=== PATIENT | female | born 1950 | race Caucasian/White ===

== ENCOUNTER → 2017-03-09 | Outpatient (CLI) | payer MEDICARE ==
--- NOTE | 2017-03-10 11:29 | MM ---
Reason for exam: screening (asymptomatic). Last mammogram was performed 1 year ago. History: Patient is postmenopausal. Family history of breast cancer in paternal aunt at age 70 and breast cancer in paternal aunt at age 40. Physical Findings: A clinical breast exam by your physician is recommended on an annual basis and results should be correlated with mammographic findings. MG 3D Screening Mammo W/Cad Bilateral CC and MLO view(s) were taken. Prior study comparison: February 26, 2016, bilateral MG diagnostic mammo w CAD CAROLINE. April 09, 2015, bilateral MG screening mammo w CAD. The breast tissue is almost entirely fat. There is no discrete abnormality. No significant changes when compared with prior studies. ASSESSMENT: Negative, BI-RAD 1 RECOMMENDATION: Routine screening mammogram of both breasts in 1 year.
== END | disposition home or self-care (01) ==
LOC: RADMAMWWP 07:54
PROVIDERS: ATTEND Family Medicine
DX: Z12.31 Encounter for screening mammogram for malignant neoplasm of breast (principal); Z80.3 Family history of malignant neoplasm of breast
CPT/HCPCS: 77063; G0202

== ENCOUNTER → 2018-03-29 | Outpatient (CLI) | payer MEDICARE ==
--- NOTE | 2018-03-30 14:33 | MM ---
Reason for exam: screening (asymptomatic). Last mammogram was performed 1 year and 1 month ago. History: Patient is postmenopausal. Family history of breast cancer in paternal aunt at age 70 and breast cancer in paternal aunt at age 40. Physical Findings: A clinical breast exam by your physician is recommended on an annual basis and results should be correlated with mammographic findings. MG 3D Screening Mammo W/Cad Bilateral CC and MLO view(s) were taken. Prior study comparison: March 09, 2017, bilateral MG 3d screening mammo w/cad. February 26, 2016, bilateral MG diagnostic mammo w CAD CAROLINE. There are scattered fibroglandular densities. No suspicious abnormality. No significant changes when compared with prior studies. ASSESSMENT: Negative, BI-RAD 1 RECOMMENDATION: Routine screening mammogram of both breasts in 1 year.
== END | disposition home or self-care (01) ==
LOC: RADMAMWWP 07:44
PROVIDERS: ATTEND Family Medicine
DX: Z12.31 Encounter for screening mammogram for malignant neoplasm of breast (principal); Z80.3 Family history of malignant neoplasm of breast
CPT/HCPCS: 77063; 77067

== ENCOUNTER → 2020-04-14 | Outpatient (CLI) | payer MEDICARE ==
--- NOTE | 2020-04-14 09:46 | XR ---
EXAMINATION TYPE: XR chest 2V DATE OF EXAM: 04/14/2020 COMPARISON: NONE TECHNIQUE: PA and lateral views submitted. HISTORY: Pain FINDINGS: The lungs are clear and there is no pneumothorax, pleural effusion, or focal pneumonia. Hypertrophi c change of the spine. Hyperinflation suggests COPD. IMPRESSION: 1. No acute process.
== END | disposition home or self-care (01) ==
LOC: RADXRMAIN 09:03
PROVIDERS: ATTEND Family Medicine
DX: R05 Cough (principal); C43.9 Malignant melanoma of skin, unspecified
CPT/HCPCS: 71046

== ENCOUNTER → 2020-06-09 | Outpatient (CLI) | payer MEDICARE ==
--- NOTE | 2020-06-10 10:39 | MM ---
Reason for exam: screening (asymptomatic). Last mammogram was performed 1 year and 2 months ago. History: Patient is postmenopausal. Family history of breast cancer in paternal aunt at age 70 and breast cancer in paternal aunt at age 40. Physical Findings: A clinical breast exam by your physician is recommended on an annual basis and results should be correlated with mammographic findings. MG 3D Screening Mammo W/Cad Bilateral CC and MLO view(s) were taken. Prior study comparison: April 09, 2019, bilateral MG 3d screening mammo w/cad. March 29, 2018, bilateral MG 3d screening mammo w/cad. There are scattered fibroglandular densities. There is no discrete abnormality. ASSESSMENT: Negative, BI-RAD 1 RECOMMENDATION: Routine screening mammogram of both breasts in 1 year.
== END | disposition home or self-care (01) ==
LOC: RADMAMWWP 10:49
PROVIDERS: ATTEND Family Medicine
DX: Z12.31 Encounter for screening mammogram for malignant neoplasm of breast (principal)
CPT/HCPCS: 77063; 77067

== ENCOUNTER → 2021-05-20 | Outpatient (CLI) | payer MEDICARE | END | disposition home or self-care (01) | LOC: LABWHC1 12:59 | PROVIDERS: ATTEND Nurse Practitioner Women's Health | DX: R07.89 Other chest pain (principal) | CPT/HCPCS: 36415; 93005 ==

== ENCOUNTER → 2021-06-11 | Outpatient (CLI) | payer MEDICARE ==
--- NOTE | 2021-06-12 12:12 | MM ---
Reason for exam: screening (asymptomatic). Last mammogram was performed 1 year ago. History: Patient is postmenopausal and has history of other cancer at age 70. Family history of breast cancer in paternal aunt at age 70 and breast cancer in paternal aunt at age 40. Physical Findings: A clinical breast exam by your physician is recommended on an annual basis and results should be correlated with mammographic findings. MG 3D Screening Mammo W/Cad Bilateral CC and MLO view(s) were taken. Prior study comparison: June 09, 2020, bilateral MG 3d screening mammo w/cad. April 09, 2019, bilateral MG 3d screening mammo w/cad. No significant changes when compared with prior studies. ASSESSMENT: Benign, BI-RAD 2 RECOMMENDATION: Routine screening mammogram of both breasts in 1 year.
== END | disposition home or self-care (01) ==
LOC: RADMAMWWP 13:11
PROVIDERS: ATTEND Family Medicine
DX: Z12.31 Encounter for screening mammogram for malignant neoplasm of breast (principal); Z80.3 Family history of malignant neoplasm of breast
CPT/HCPCS: 77063; 77067

== ENCOUNTER → 2021-12-24 | Outpatient (CLI) | payer MEDICARE ==
[2021-12-24 14:40] LABS: African American GFR (CKD) >90 (>60 ml/min/1.73 sqM); Blood Urea Nitrogen 15 mg/dL (7-17); Non-African American GFR(CKD) >90 (>60 ml/min/1.73 sqM)
--- NOTE | 2021-12-24 15:39 | CT ---
EXAMINATION TYPE: CT brain wo/w con DATE OF EXAM: 12/24/2021 COMPARISON: None HISTORY: Facial droop. CT DLP: 2294mGycm CONTRAST: CT scan of the head is performed without and with IV Contrast, patient injected with 100ml mL of Isov ue 300. Unenhanced followed by contrast enhanced CT of the brain is submitted for evaluation. The ventricles are midline. There is no evidence for intracranial hemorrhage or extra-axial collection. No mass e ffects are identified. Visualized bony calvarium is intact. Contrast is administered and no enhanci ng lesions are detected. No pathologic enhancement is identified. If symptoms persist consider MRI. IMPRESSION: No distinct abnormality appreciated.
== END | disposition home or self-care (01) ==
LOC: RADCTMAIN 13:47
PROVIDERS: ATTEND Family Medicine
DX: R29.810 Facial weakness (principal)
CPT/HCPCS: 82565; 84520; 70470; 36415; Q9967

== ENCOUNTER → 2022-06-16 | Outpatient (CLI) | payer MEDICARE ==
--- NOTE | 2022-06-17 13:50 | MM ---
Reason for Exam: Screening (asymptomatic). Last screening mammogram was performed 12 month(s) ago. Patient History: Menarche at age 11. First Full-Term at age 22. Postmenopausal. Other cancer, age 70. Paternal aunt had breast cancer, age 70. Paternal aunt had breast cancer, age 40. Risk Values: Jennifer 5 year model risk: 1.7%. NCI Lifetime model risk: 4.7%. Prior Study Comparison: 04/09/2019 Bilateral Screening Mammogram, [facility]. 06/09/2020 Bilateral Screening Mammogram, [facility]. 06/11/2021 Bilateral Screening Mammogram, [facility]. Tissue Density: There are scattered fibroglandular densities. Findings: Analyzed By CAD. There are benign appearing vascular calcifications bilaterally in the upper outer quadrant. No discrete abnormality. Benign left axilla lymph nodes. Overall Assessment: Benign, BI-RAD 2 Management: Screening Mammogram of both breasts in 1 year. A clinical breast exam by your physician is recommended on an annual basis and results should be correlated with mammographic findings. Electronically signed and approved by: Quang Rawls M.D.
--- NOTE | 2022-06-17 19:15 | BD ---
EXAMINATION TYPE: Axial Bone Density DATE OF EXAM: 06/16/2022 CLINICAL HISTORY: 72 year old Female. ICD-10 CODE: Z13.820 OSTEOPOROSIS Height: 64 Weight: 185.4 FRAX RISK QUESTIONS: Alcohol (3 or more units per day): no Family History (Parent hip fracture): no Glucocorticoids (More than 3mos): no (Ex: prednisone, prednisolone, methylprednisolone, dexamethasone, and hydrocortisone). History of Fracture in Adulthood: no Secondary Osteoporosis: 1. Type 1 Diabetes: no 2. Hyperthyroidism: no 3. Menopause before 45: no 4. Malnutrition: no 5. Chronic liver disease: no Rheumatoid Arthritis: no Current Tobacco Use: no RISK FACTORS HISTORY OF: Surgery to Spine/Hip(right/left)/Wrist (right/left): no Family History of Osteoporosis: no Active: yes Diet low in dairy products/other sources of calcium: no Postmenopausal woman: yes Lost more than 2 inches in height since high school: no MEDICATIONS: Additional History: EXAM MEASUREMENTS: Bone mineral densitometry was performed using the [employer] System. Bone mineral density as measured about the Lumbar spine is: ----- L1-L4(G/cm2): 1.064 T Score Values are as follows: ----- L1: -1.3 ----- L2: -1.2 ----- L3: -0.4 ----- L4: -1.3 ----- L1-L4: -1.0 Bone mineral density has: decreased -16.4 % since study of: 04.02.2002 Bone mineral density about the R hip (g/cm2): 0.920 Bone mineral density about the L hip (g/cm2): 0.877 T Score values are as follows: -----R Neck: -0.8 -----L Neck: -1.2 -----R Total: -0.2 -----L Total: -0.4 Bone mineral density has: decreased -9.5 % since study of: 04.02.2002 FRAX%s: The graph provided illustrates a 9.0% chance for a major osteoporotic fx and a 1.1% chance fo r the hips probability for fx in 10 years time. IMPRESSION: Osteopenia (T Score between -2.5 and -1). There is slightly increased risk of fracture and the patient may be considered for treatment. Re-Screen 2-5 years. NOTE: T-SCORE=SD OF THE YOUNG ADULT MEAN.
== END | disposition home or self-care (01) ==
LOC: RADMAMWWP 07:51
PROVIDERS: ATTEND Family Medicine
DX: Z12.31 Encounter for screening mammogram for malignant neoplasm of breast (principal); Z13.820 Encounter for screening for osteoporosis; M85.80 Other specified disorders of bone density and structure, unspecified site; Z78.0 Asymptomatic menopausal state
CPT/HCPCS: 77063; 77067; 77080

== ENCOUNTER → 2023-05-16 | Outpatient (CLI) | payer MEDICARE ==
--- NOTE | 2023-05-16 17:15 | US ---
EXAMINATION TYPE: US venous doppler duplex LE LT DATE OF EXAM: 05/16/2023 5:04 PM COMPARISON: NONE CLINICAL INDICATION: Female, 73 years old with history of M79.605 Pain in left leg; pain SIDE PERFORMED: Left TECHNIQUE: The lower extremity deep venous system is examined utilizing real time linear array sonog magui with graded compression, doppler sonography and color-flow sonography. VESSELS IMAGED: Common Femoral Vein Deep Femoral Vein Greater Saphenous Vein * Femoral Vein Popliteal Vein Small Saphenous Vein * Proximal Calf Veins (* superficial vessels) Left Leg: Negative for DVT IMPRESSION: Grayscale, color doppler, spectral doppler imaging performed of the deep veins of the lo wer extremities. There is normal flow, compressibility, vascular waveforms.
== END | disposition home or self-care (01) ==
LOC: RADUSWWP 16:42
PROVIDERS: ATTEND Family Medicine
DX: M79.605 Pain in left leg (principal); M79.652 Pain in left thigh; Z74.09 Other reduced mobility

== ENCOUNTER → 2023-09-21 | Outpatient (CLI) | payer MEDICARE ==
--- NOTE | 2023-09-22 09:50 | MM ---
Reason for Exam: Screening (asymptomatic). Last mammogram was performed 1 year(s) and 3 month(s) ago. Patient History: Menarche at age 11. First Full-Term at age 22. Postmenopausal. Patient has history of breast feeding. Other cancer, age 70. Paternal aunt had breast cancer, age 70. Paternal aunt had breast cancer, age 40. Risk Values: Jennifer 5 year model risk: 1.7%. NCI Lifetime model risk: 4.5%. Prior Study Comparison: 03/09/2017 Bilateral Screening Mammogram, [facility]. 03/29/2018 Bilateral Screening Mammogram, [facility]. 04/09/2019 Bilateral Screening Mammogram, [facility]. 06/09/2020 Bilateral Screening Mammogram, [facility]. 06/11/2021 Bilateral Screening Mammogram, [facility]. 06/16/2022 Bilateral MG 3D screening mammo w/cad, [facility]. Tissue Density: The breast tissue is almost entirely fat. Findings: Analyzed By CAD. There is no suspicious group of microcalcifications or new suspicious mass. Overall Assessment: Negative, BI-RAD 1 Management: Screening Mammogram of both breasts in [address] [facility] will attempt to contact patient to return for supplemental views and ultrasound if indicated. Patient should continue monthly self-breast exams. A clinical breast exam by your physician is recommended on an annual basis. This exam should not preclude additional follow-up of suspicious palpable abnormalities. Note on Jennifer scores and lifetime risk: 1. A Jennifer score greater than 3% is considered moderate risk. If this is the case, consider specialist referral to assess eligibility for a risk reducing agent. 2. If overall lifetime risk for the development of breast cancer is 20% or higher, the patient may qualify for future screening with alternating mammogram and breast MRI. Electronically signed and approved by: Michael Saavedra DO
== END | disposition home or self-care (01) ==
LOC: RADMAMWWP 07:34
PROVIDERS: ATTEND Family Medicine
DX: Z12.31 Encounter for screening mammogram for malignant neoplasm of breast (principal); Z78.0 Asymptomatic menopausal state; Z80.3 Family history of malignant neoplasm of breast
CPT/HCPCS: 77063; 77067

== ENCOUNTER → 2024-07-31 | Outpatient (CLI) | payer MEDICARE ==
--- NOTE | 2024-08-01 13:28 | BD ---
EXAMINATION TYPE: Axial Bone Density DATE OF EXAM: 07/31/2024 CLINICAL HISTORY: 74 years old Female. ICD-10 CODE: Z78.0 ASYMPTOMATIC MENOPAUSAL STATE Height: 64 Weight: 195.3 FRAX RISK QUESTIONS: Alcohol (3 or more units per day): no Family History (Parent hip fracture): no Glucocorticoids (More than 3mos): no (Ex: prednisone, prednisolone, methylprednisolone, dexamethasone, and hydrocortisone). History of Fracture in Adulthood: no Secondary Osteoporosis: 1. Type 1 Diabetes: no 2. Hyperthyroidism: no 3. Menopause before 45: no 4. Malnutrition: no 5. Chronic liver disease: no Rheumatoid Arthritis: no Current Tobacco Use: no RISK FACTORS HISTORY OF: Surgery to Spine/Hip(right/left)/Wrist (right/left): no EXAM MEASUREMENTS: Bone mineral densitometry was performed using the [employer] System. Bone mineral density as measured about the Lumbar spine is: ----- L1-L4(G/cm2): 1.134 T Score Values are as follows: ----- L1: -1.1 ----- L2: -0.1 ----- L3: 0.2 ----- L4: -0.8 ----- L1-L4: -0.4 Z Score Values are as follows: ----- L1: -0.2 ----- L2: 0.8 ----- L3: 1.2 ----- L4: 0.2 ----- L1-L4: 0.6 Bone mineral density has: increased 6.6 % since study of: 06.16.2022 Bone mineral density about the R hip (g/cm2): 0.975 Bone mineral density about the L hip (g/cm2): 0.967 T Score values are as follows: -----R Neck: -0.8 -----L Neck: -1.0 -----R Total: -0.3 -----L Total: -0.3 Z Score values are as follows: -----R Neck: 0.5 -----L Neck: 0.3 -----R Total: 0.8 -----L Total: 0.8 Bone mineral density has: decreased -0.3 % since study of: 06.16.2021 FRAX%s: The graph provided illustrates a 8.9 % chance for a major osteoporotic fx and a 1.2% chance f or the hips probability for fx in 10 years time. IMPRESSION: Normal (Values between +1 and -1 indicate normal bone mass). Consider repeating this study in 5 year s or sooner if there is some new clinical indication. NOTE: T-SCORE=SD OF THE YOUNG ADULT MEAN. [facility], , 08/01/2024 1:26 PM
== END | disposition home or self-care (01) ==
LOC: RADBDWWP 15:46
PROVIDERS: ATTEND Family Medicine
CPT/HCPCS: 77080

== ENCOUNTER → 2024-12-31 | Outpatient (CLI) | payer MEDICARE ==
--- NOTE | 2024-12-31 08:04 | MM ---
Reason for Exam: Screening (asymptomatic). Last mammogram was performed 1 year(s) and 3 month(s) ago. Patient History: Menarche at age 11. First Full-Term at age 22. Postmenopausal. Patient has history of breast feeding. Other cancer, age 70. Paternal aunt had breast cancer, age 70. Paternal aunt had breast cancer, age 40. Risk Values: Jennifer 5 year model risk: 1.7%. NCI Lifetime model risk: 4.3%. Prior Study Comparison: 06/11/2021 Bilateral Screening Mammogram, [facility]. 06/16/2022 Bilateral MG 3D screening mammo w/cad, [facility]. 09/21/2023 Bilateral MG 3D screening mammo w/cad, [facility]. Tissue Density: There are scattered areas of fibroglandular density. Findings: Analyzed By CAD. There is no suspicious group of microcalcifications or new suspicious mass in either breast. Benign-appearing calcified patient. Overall Assessment: Benign, BI-RAD 2 Management: Screening Mammogram of both breasts in 1 year. . Patient should continue monthly self-breast exams. A clinical breast exam by your physician is recommended on an annual basis. This exam should not preclude additional follow-up of suspicious palpable abnormalities. Note on Jennifer scores and lifetime risk: 1. A Jennifer score greater than 3% is considered moderate risk. If this is the case, consider specialist referral to assess eligibility for a risk reducing agent. 2. If overall lifetime risk for the development of breast cancer is 20% or higher, the patient may qualify for future screening with alternating mammogram and breast MRI. [facility], , 12/31/2024 8:02 AM. Electronically signed and approved by: Darrell Kraft M.D. Radiologis
== END | disposition home or self-care (01) ==
LOC: RADMAMWWP 07:38
PROVIDERS: ATTEND Family Medicine
DX: Z12.31 Encounter for screening mammogram for malignant neoplasm of breast (principal); R92.323 Mammographic fibroglandular density, bilateral breasts; Z78.0 Asymptomatic menopausal state; Z80.3 Family history of malignant neoplasm of breast
CPT/HCPCS: 77063; 77067

== ENCOUNTER → 2025-03-26 | Outpatient (CLI) | payer MEDICARE ==
[2025-03-26 13:16] VITALS: BP 134/79; PULSE 77; RESP 18; TEMP 98.4
--- NOTE | 2025-03-26 13:44 | P.SLEEP ---
History of Present Illness H&P Date: 03/26/25 This is a very pleasant 75-year-old female patient is presenting to the sleep center due to concerns of sleep apnea. The patient has been waking up tired and fatigued and she is feeling sleepy during the day. She is carrying an Charlotte score of 9. She has history of snoring. She also has history of grinding of the teeth and TMJ and the patient wears a bite guard. No reported insomnia. Denies waking up choking or gasping for air. No sleepwalking or sleep talking. No restlessness in the lower extremities. For now, the patient goes to bed at 10 PM and she wakes up 7 AM in the morning. She is retired and she maintains the same sleep schedule on the weekends. The patient has gained around 10 pounds over the past 5 years. Does not take any naps during the day. No history of any motor vehicle accidents because of feeling drowsy or sleepy. No substance abuse. No alcoholism. No smoking. She is a nose breather. She wakes up with a dry mouth and she prefers to sleep on her side. She is very much aware of sleep apnea as a disease process as the patient's has obstructive sleep apnea and he wears a CPAP machine. The patient is interested in pursuing further investigation. Review of Systems Constitutional: Reports daytime sleepiness, Reports fatigue Eyes: denies as per HPI, denies blurred vision, denies bulging eye, denies decreased vision, denies diplopia, denies discharge, denies dry eye, denies i rritation, denies itching, denies pain, denies photophobia, denies loss of peripheral vision, denies loss of vision, denies tunnel vision/blind spots Ears: deny: decreased hearing, ear discharge, earache, tinnitus Ears, nose, mouth and throat: Reports as per HPI Breasts: absent: as per HPI, change in shape, gynecomastia, masses, nipple discharge, pain, skin changes, swelling Cardiovascular: Reports as per HPI Respiratory: Reports snoring Gastrointestinal: Reports as per HPI Menstruation: Reports as per HPI Musculoskeletal: Reports as per HPI Musculoskeletal: absent: ankle pain, ankle stiffness, ankle swelling, as per HPI, elbow pain, elbow stiffness, elbow swelling, foot pain, foot stiffness, foot swelling, hand pain, hand stiffness, hand swelling, hip pain, hip st iffness, hip swelling, knee pain, knee stiffness, knee swelling, shoulder pain, shoulder stiffness, shoulder swelling, wrist pain, wrist stiffness, wrist swelling Integumentary: Reports as per HPI Neurological: Reports as per HPI Psychiatric: Reports hypersomnia, Reports sleep disturbances Endocrine: Reports as per HPI Hematologic/Lymphatic: Reports as per HPI Allergic/Immunologic: Reports as per HPI Past Medical History Past Medical History: Fibromyalgia, Hyperlipidemia History of Any Multi-Drug Resistant Organisms: None Reported Past Surgical History: Tonsillectomy Additional Past Surgical History / Comment(s): 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 Medications and Allergies Home Medications Medication Instructions Recorded Confirmed Type Rosuvastatin [Crestor] 5 mg PO DAILY 03/26/25 03/26/25 History Venlafaxine HCl ER [Effexor Xr] 75 mg PO DAILY 03/26/25 03/26/25 History Physical Exam Vitals: Vital Signs Temp Pulse Resp BP Pulse Ox 03/26/25 13:14 98.4 F 77 18 134/79 98 Intake and Output 03/25/25 03/26/25 03/26/25 22:59 06:59 14:59 Other: Weight 89.074 kg The patient appeared well nourished and normally developed. Vital signs as documented. The patient has an overbite. The patient has a Mallampati class I. Charlotte score is currently at 9. Weight is 106 pounds with a body mass index of 34.1. Head exam is unremarkable. No scleral icterus or corneal arcus noted. Neck is without jugular venous distension, thyromegaly, or carotid bruits. Carotid upstrokes are brisk bilaterally. Lungs are clear to auscultation and percussion. Cardiac exam reveals the PMI to be normally sized and situated. Rhythm is regular. First and second heart sounds normal. No murmurs, rubs or gallops. Abdominal exam reveals normal bowel sounds, no masses, no organomegaly and no aortic enlargement. Extremities are nonedematous and both femoral and pedal pulses are normal. Examination of the skin revealed no evidence of significant rashes, suspicious appearing nevi or other concerning lesions. Neurologically, the patient is awake and alert and the patient does not have any focal neurological deficit. Cranial nerves are essentially intact. Assessment and Plan Plan: Chronic fatigue/sleepiness with an Charlotte score of 9, consider possibility of underlying obstructive sleep apnea Chronic snoring, the patient has a Mallampati class I with a slight overbite TMJ with grinding of the teeth wears a bite guard Depression Hyperlipidemia Body mass index of 34.2 Plan This patient has good sleep hygiene measures and the patient is maintaining a regular sleep schedule Comorbidities are minimal. No cardiovascular complications. Wearing a bite guard regarding her TMJ and grinding of the teeth Encouraged weight loss Proceed with screening polysomnography to evaluate the presence and severity of sleep apnea and based on that we will make further recommendations on treatment options. Sleep Note - Sleep Data ESS Total: 9 - Sleep Note Sleep Note: Temperature: 98.4 F Pulse Rate: 77 Respiratory Rate: 18 Blood Pressure: 134/79 SpO2: 98 Height: 5 ft 3.5 in Weight: 89.074 kg BMI: Neck Circumference:
== END ==
LOC: 3 N SLEEP 13:07
PROVIDERS: ATTEND Internal Medicine Critical Care Medicine
DX: G47.33 Obstructive sleep apnea (adult) (pediatric) (principal); F32.A Depression, unspecified; E78.5 Hyperlipidemia, unspecified
CPT/HCPCS: 99211